=== PATIENT | female | born 1970 | race Caucasian/White ===

== ENCOUNTER 2016-06-14 17:50 | Emergency (ER) | payer MEDICARE, OTHER ==
[~2016-06-14 17:50] MED LIST: AUGMENTIN 875-1 EACH PO; LIPITOR TAB 1010 MG PO
[2016-06-14 18:37] LABS: HEMOGLOBIN 13.6 gm/dl (12.3-15.3); RED BLOOD COUNT 4.2 M/UL (4.00-5.10); WHITE BLOOD COUNT 14.5 K/UL (4.5-11.0)
[2016-06-14 19:56] LABS: BUN/CREATININE RATIO 15 (0-10)
[2016-06-14 23:19] LABS: BUN/CREATININE RATIO 17 (0-10)
[2016-06-15] MEDS ORDERED: EMU-LAC HYDRAT120 ML TP (13:18)
[2016-06-15] MEDS ORDERED: ASPIRIN 325MG325 MG NG (13:19)
[2016-06-15] MEDS ORDERED: FLEXERIL 10 MG10 MG PO (13:20)
[2016-06-15] MEDS ORDERED: CLARITIN10 MG PO (13:20)
[2016-06-15] MEDS ORDERED: FLUVOXAMINE MAL50 MG PO (13:22)
[2016-06-15] MEDS ORDERED: NEURONTIN 400400 MG PO (13:23)
[2016-06-15] MEDS ORDERED: GLUCOSA-CHOND-1 EACH PO (13:24)
[2016-06-15] MEDS ORDERED: HYDROCHLOROTHIA25 MG PO (13:26)
[2016-06-15] MEDS ORDERED: LISINOPRIL5 MG PO (13:26)
[2016-06-15] MEDS ORDERED: NOVOLOG100 UNIT/1 SQ (13:28)
[2016-06-15] MEDS ORDERED: OMEPRAZOLE20 MG PO (13:28)
[2016-06-15] MEDS ORDERED: ALPRAZOLAM0.5 MG PO (13:30)
[2016-06-15] MEDS ORDERED: ULTRACET TABLE1 EACH PO (13:30)
[2016-10-26] MEDS ORDERED: NOVOLOG100 UNIT/1 SQ (05:03)
[2016-10-26] MEDS ORDERED: FLEXERIL 10 MG10 MG PO (05:04)
[2016-10-26] MEDS ORDERED: PLAQUENIL 200200 MG PO (05:04)
[2016-10-26] MEDS ORDERED: LUVOX TAB 100100 MG PO (05:04)
[2016-10-26] MEDS ORDERED: AZULFIDINE 500500 MG PO (05:05)
[2016-10-26] MEDS ORDERED: PRILOSEC OTC20 MG PO (05:05)
[2016-10-26] MEDS ORDERED: ZESTRIL/PRINIVI10 MG PO (05:06)
== END 2016-06-14 23:50 | disposition home or self-care (01) ==
LOC: ER1 17:50
PROVIDERS: Emergency Medicine; Family Medicine
DX: E10.10 Type 1 diabetes mellitus with ketoacidosis without coma (principal); F17.200 Nicotine dependence, unspecified, uncomplicated
CPT/HCPCS: 36415; 80048; 80053; 81001; 82009; 82800; 82962; 83605; 85025; 96361; 96372; 96374; 99291; J1815; J2060; J7030; J7120

== ENCOUNTER 2016-06-15 07:04 | Inpatient (IN) | payer MEDICARE, OTHER ==
[~2016-06-15] VITALS: Ht 165.1 cm; Wt 75.8 kg
[2016-06-15 07:50] LABS: HEMOGLOBIN 13.4 gm/dl (12.3-15.3); RED BLOOD COUNT 4.14 M/UL (4.00-5.10); WHITE BLOOD COUNT 16.4 K/UL (4.5-11.0)
[2016-06-15 09:04] LABS: BUN/CREATININE RATIO 19 (0-10)
[2016-06-15 10:07] LABS: BUN/CREATININE RATIO 20 (0-10)
[2016-06-15 11:39] LABS: BUN/CREATININE RATIO 21 (0-10)
[2016-06-15] MEDS ORDERED: EMU-LAC HYDRAT120 ML TP (13:18)
[2016-06-15] MEDS ORDERED: ASPIRIN 325MG325 MG NG (13:19)
[2016-06-15] MEDS ORDERED: CLARITIN10 MG PO (13:20)
[2016-06-15] MEDS ORDERED: FLEXERIL 10 MG10 MG PO (13:20)
[2016-06-15] MEDS ORDERED: FLUVOXAMINE MAL50 MG PO (13:22)
[2016-06-15] MEDS ORDERED: NEURONTIN 400400 MG PO (13:23)
[2016-06-15] MEDS ORDERED: GLUCOSA-CHOND-1 EACH PO (13:24)
[2016-06-15] MEDS ORDERED: HYDROCHLOROTHIA25 MG PO (13:26)
[2016-06-15] MEDS ORDERED: LISINOPRIL5 MG PO (13:26)
[2016-06-15] MEDS ORDERED: OMEPRAZOLE20 MG PO (13:28)
[2016-06-15] MEDS ORDERED: NOVOLOG100 UNIT/1 SQ (13:28)
[2016-06-15] MEDS ORDERED: ULTRACET TABLE1 EACH PO (13:30)
[2016-06-15] MEDS ORDERED: ALPRAZOLAM0.5 MG PO (13:30)
[2016-06-15 14:54] LABS: BUN/CREATININE RATIO 26 (0-10)
[2016-06-15 18:05] LABS: BUN/CREATININE RATIO 21 (0-10)
[2016-06-15 20:21] LABS: HEMOGLOBIN 12.8 gm/dl (12.3-15.3); RED BLOOD COUNT 3.99 M/UL (4.00-5.10)
[2016-06-15 20:40] LABS: BUN/CREATININE RATIO 15 (0-10)
[2016-10-26] MEDS ORDERED: NOVOLOG100 UNIT/1 SQ (05:03)
[2016-10-26] MEDS ORDERED: FLEXERIL 10 MG10 MG PO (05:04)
[2016-10-26] MEDS ORDERED: PLAQUENIL 200200 MG PO (05:04)
[2016-10-26] MEDS ORDERED: LUVOX TAB 100100 MG PO (05:04)
[2016-10-26] MEDS ORDERED: PRILOSEC OTC20 MG PO (05:05)
[2016-10-26] MEDS ORDERED: AZULFIDINE 500500 MG PO (05:05)
[2016-10-26] MEDS ORDERED: ZESTRIL/PRINIVI10 MG PO (05:06)
== END 2016-06-15 21:06 | disposition left against medical advice (07) | DRG 637 ==
LOC: ER1 07:04 → ZEROF 10:20 → CCU 13:11
PROVIDERS: Emergency Medicine; ADMIT Emergency Medicine
DX: E10.10 Type 1 diabetes mellitus with ketoacidosis without coma (principal); G93.41 Metabolic encephalopathy; Z79.4 Long term (current) use of insulin; Z96.41 Presence of insulin pump (external) (internal); Z88.5 Allergy status to narcotic agent; F17.210 Nicotine dependence, cigarettes, uncomplicated; I10 Essential (primary) hypertension; E78.5 Hyperlipidemia, unspecified; F31.9 Bipolar disorder, unspecified; K21.9 Gastro-esophageal reflux disease without esophagitis; L40.50 Arthropathic psoriasis, unspecified; Z90.711 Acquired absence of uterus with remaining cervical stump; R50.9 Fever, unspecified; R09.02 Hypoxemia; F41.9 Anxiety disorder, unspecified
CPT/HCPCS: 36415; 36600; 70450; 71010; 80048; 80053; 80307; 81001; 82009; 82550; 82553; 82800; 82803; 82962; 83605; 83874; 84484; 85025; 85027; 85379; 85610; 85730; 87040; 87086; 93005; 96361; 96372; 96374; 96375; 96376; 99291; J0696; J1815; J2060; J2250; J7030; J7050; J7120

== ENCOUNTER 2016-06-15 22:17 | Emergency (ER) | payer MEDICARE, OTHER ==
[~2016-06-15 22:17] MED LIST changes: +ALPRAZOLAM0.5 MG PO; +ASPIRIN 325MG325 MG NG; +CLARITIN10 MG PO; +EMU-LAC HYDRAT120 ML TP; +FLEXERIL 10 MG10 MG PO; +FLUVOXAMINE MAL50 MG PO; +GLUCOSA-CHOND-1 EACH PO; +HYDROCHLOROTHIA25 MG PO; +LISINOPRIL5 MG PO; +NEURONTIN 400400 MG PO; +NOVOLOG100 UNIT/1 SQ; +OMEPRAZOLE20 MG PO; +ULTRACET TABLE1 EACH PO
[2016-10-26] MEDS ORDERED: NOVOLOG100 UNIT/1 SQ (05:03)
[2016-10-26] MEDS ORDERED: FLEXERIL 10 MG10 MG PO (05:04)
[2016-10-26] MEDS ORDERED: LUVOX TAB 100100 MG PO (05:04)
[2016-10-26] MEDS ORDERED: PLAQUENIL 200200 MG PO (05:04)
[2016-10-26] MEDS ORDERED: AZULFIDINE 500500 MG PO (05:05)
[2016-10-26] MEDS ORDERED: PRILOSEC OTC20 MG PO (05:05)
[2016-10-26] MEDS ORDERED: ZESTRIL/PRINIVI10 MG PO (05:06)
== END 2016-06-15 22:35 | disposition left against medical advice (07) ==
LOC: ER1 22:17
DX: Z53.21 Procedure and treatment not carried out due to patient leaving prior to being seen by health care provider (principal)
CPT/HCPCS: 82962